=== PATIENT | male | born 1935 | race Caucasian/White ===

== ENCOUNTER → 2023-12-12 09:00 | Outpatient (REF) | payer OTHER, SELFPAY | LOC: HWRAD 09:00 | PROVIDERS: ATTENDING PHYSICIAN Internal Medicine Hematology & Oncology; FAMILY PHYSICIAN Family Medicine | DX: C43.4 Malignant melanoma of scalp and neck (principal) | CPT/HCPCS: 71260; 74177; Q9967 ==

== ENCOUNTER → 2024-03-11 09:25 | Outpatient (REF) | payer OTHER, SELFPAY | LOC: HWRAD 09:25 | PROVIDERS: ATTENDING PHYSICIAN Internal Medicine Hematology & Oncology; FAMILY PHYSICIAN Family Medicine | DX: C43.4 Malignant melanoma of scalp and neck (principal) | CPT/HCPCS: 71260; 74177; Q9967 ==

== ENCOUNTER → 2024-07-10 08:12 | Outpatient (REF) | payer OTHER, SELFPAY | LOC: HWRAD 08:12 | PROVIDERS: ATTENDING PHYSICIAN Internal Medicine Hematology & Oncology; FAMILY PHYSICIAN Family Medicine | DX: C43.4 Malignant melanoma of scalp and neck (principal) | CPT/HCPCS: 71260; 74177; Q9967 ==

== ENCOUNTER 2024-09-01 00:03 | Emergency (ER) | payer OTHER, SELFPAY ==
[2024-09-01 00:09] VITALS: BP 119/72
[2024-09-01 01:06] VITALS: BMI 24.7
[2024-09-01] MEDS: TYLENOL 1000 MG PO (01:08)
[2024-09-01] MEDS: TORADOL 30 MG IV (01:09)
[2024-09-01] MEDS: NSS 1000 IV (01:09)
[2024-09-01 01:18] LABS: % Basophils 0.8 % (0-2); % Eosinophils 4.3 % (0-6); % Immature Granulocytes 0.6 % (0-0.5); % Lymphocytes 26.3 % (20.5-51.1); % Monocytes 11.4 % (1.7-9.3); % Neutrophils 56.6 % (42.2-75.2); Absolute Basophils 0.1 10^3/uL (0-0.2); Absolute Eosinophils 0.3 10^3/uL (0-0.7); Absolute Lymphocytes 1.9 10^3/uL (1.2-3.4); Absolute Monocytes 0.8 10^3/uL (0.1-0.6); Absolute Neutrophils 4.1 10^3/uL (1.4-6.5); Hematocrit 42.4 % (39.0-52.0); Hemoglobin 14.9 g/dL (13.0-18.0); Mean Corp Hgb Conc. 35.1 g/dL (33.0-37.0); Mean Corpuscular Hgb 32.3 pg (27.0-31.0); Mean Platelet Volume 9.6 fL (7.4-10.4); Nucleated Red Blood Cells % 0 % (-); Platelet Count 159 10^3/uL (130-400); Red Blood Cell Count 4.61 10^6/uL (4.70-6.10); Red Cell Dist. Width 13.2 % (11.5-14.5); White Blood Cell Count 7.3 10^3/uL (4.8-10.8)
[2024-09-01 01:41] LABS: ALT (SGPT) 15 U/L (0-50); Albumin 3.8 g/dl (3.5-5.0); Blood Urea Nitrogen 27 mg/dl (9-20); Calcium 8.9 mg/dl (8.4-10.2); Carbon Dioxide 25 mmol/L (22-30); Chloride 101 mmol/L (98-107); Estimated Creatinine Clearance 41 ml/min; Glucose 175 mg/dl (70-99); Sodium 133 mmol/L (135-145); Total Bilirubin 0.9 mg/dl (0.2-1.3); eGFR 52.51
[2024-09-01 01:53] VITALS: BP 141/80
[2024-09-01 01:54] VITALS: BP 141/80
[2024-09-01 02:00] LABS: Urine Albumin Trace (Neg - Trace); Urine Bilirubin Negative (Negative); Urine Character Slightly Cloudy (Clear); Urine Color Yellow; Urine Glucose 3+ (Negative); Urine Ketone Negative (Negative); Urine Leukocyte 2+ (Negative); Urine Nitrite Positive (Negative); Urine Occult Blood 4+ (Negative); Urine Specific Gravity 1.015 (<1.030); Urine Urobilinogen Negative (Neg - 1+)
[2024-09-01 02:01] LABS: AST (SGOT) 23 U/L (17-59); Alkaline Phosphatase 74 U/L (38-126); Potassium 4.5 mmol/L (3.5-5.1)
[2024-09-01 02:21] LABS: Urine Red Blood Cell >100 /HPF (0-2)
[2024-09-01 02:22] LABS: Urine Squamous Cell SEEN /LPF (Few); Urine White Cell >100 /HPF (0-5)
--- NOTE | 2024-09-01 02:37 | ED.GENMED ---
History of Present Illness
General
Chief Complaint: Back Pain
Source: patient
Exam Limitations: none
Time Seen by Provider: 09/01/24 00:46
History of Present Illness
History of Present Illness:
This is a 89 year old male that comes in with c/o left sided back pain. States that he thinks he has a kidney stone. States that when he walks or turns over in bed he has back pain. States that even standing he has pain. States that this started a
few weeks ago but today the pain got much worse. Denies any fever, chills, chest pain, SOB, abd pain, nausea, vomiting, diarrhea, headache, dizziness, urinary burning.
Past History
Past History
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 Renal calculus,
)
ED Past Surgical History: Cardiac (Stent X 1), Cholecystectomy and Other (Left eye surgery, Cataracts, )
Social History
Tobacco: Former smoker
Alcohol: Occasional
Drug: None
Personal:
Living: with family
Family History
Family History: Cancer; Negative Diabetes, Hypertension, Early CAD or Asthma
Review of Systems
Review of Systems
All Other Systems: ROS reviewed and negative except as documented in HPI and ROS
Constitutional: Reports no symptoms; Denies fever or chills
EENT: Reports no symptoms
Respiratory: Reports no symptoms; Denies cough or trouble breathing
Cardiac: Reports no symptoms; Denies chest pain
ABD/GI: Reports no symptoms; Denies abdominal pain, nausea, vomiting or diarrhea
: Reports no symptoms; Denies dysuria, frequency or urgency
Musculoskeletal: Reports back pain (Left sided)
Skin: Reports no symptoms
Neurological: Reports no symptoms; Denies dizzy or headache
Psychiatric: Reports no symptoms
Phy Exam
General Physical Exam
General Presentation: mild distress (With movement)
General age: appears stated age
General Skin: warm and dry
General Habitus: elderly
General Mental: alert
General Hydration: dry mucous membranes
ENT Exam
ENT Exam: TM's normal, pharynx normal and neck supple
Cardiovascular Exam
Cardiovascular Exam: regular rate/rhythm and normal peripheral pulses
Pulmonary Exam
Pulmonary Exam: lungs clear, no respiratory distress, no rales, chest non tender, no crackles, no rhonchi, no wheezing and no cough
Gastrointestinal Exam
Gastrointestinal Exam: normal bowel sounds, non tender, soft, no organomegaly, no pulsatile mass, non distended and no cva tenderness
Musculoskeletal Exam
Musculoskeletal Exam: no edema and other (Negative for any spinal or lateral back pain. Slight Discomfort with left sided straight leg raise. Discomfort with going up on his toes. Negative discomfort turning sided to side or bending forward. )
Skin Exam
Skin Exam: normal color, warm/dry, no rash and no petechia
Psychiatric Exam
Psychiatric Exam: normal mood/affect
Course
Orders/Labs/Results
Orders:
Orders
09/01/24 00:56
0.9% Sodium Chloride 1000 ml [Nss] 1,000 ml IV BOLUS
Acetaminophen [Tylenol] 1,000 mg PO NOW STA
Ketorolac [Toradol] 30 mg IV NOW STA
09/01/24 01:10
Complete Blood Count/With Diff Urgent
Comprehensive Metabolic Panel Urgent
09/01/24 01:51
Urinalysis Reflex To Culture Urgent
Date Specimen was Collected: 09/01/24
Time Specimen was Collected: 01:51
Urine Microscopic Reflex Cult Urgent
Urine Culture Urgent
DENISE Source: U
Specimen Description:
Date Specimen was Collected: 09/01/24
Time Specimen was Collected: 01:51
09/01/24 02:34
CT Abd/pel Without Iv Or Oral Urgent
Comment:
Reason For Exam: Back pain, Positive UTI with blood
09/01/24 02:35
CefTRIAXone [Rocephin] 1,000 mg IV NOW STA
09/01/24 02:36
HYDROmorphone [Dilaudid] 0.25 mg IV NOW STA
Abnormal Lab Results
09/01/24 09/01/24
01:10 01:51
RBC 4.61 L 10^6/uL
(4.70-6.10)
MCH 32.3 H pg
(27.0-31.0)
Absolute Monos (auto) 0.8 H 10^3/uL
(0.1-0.6)
Immature Gran % 0.6 H %
(0-0.5)
Monocytes % 11.4 H %
(1.7-9.3)
Sodium 133 L mmol/L
(135-145)
BUN 27 H mg/dl
(9-20)
Glucose 175 H mg/dl
(70-99)
Ur Occult Blood Reflex 4+ A
(Negative)
Urine Nitrite (Reflex) Positive A
(Negative)
Leukocyte Esterase Rfl 2+ A
(Negative)
Urine RBC >100 A /HPF
(0-2)
Urine WBC (Reflex) >100 A /HPF
(0-5)
Urine Glucose 3+ A
(Negative)
09/01/24 01:10
09/01/24 01:10
Sodium slightly low. Hyperglycemia. Urine positive for infection.
Vital Signs
Initial and Last Documented VS:
Initial Vital Signs
Temp Pulse Resp BP Pulse Ox
97.7 F 70 18 119/72 96
09/01/24 00:09 09/01/24 00:09 09/01/24 00:09 09/01/24 00:09 12/22/24 00:09
Last Documented Vital Signs
Temp Pulse Resp BP Pulse Ox
97.7 F 62 18 145/84 97
09/01/24 00:09 09/01/24 01:54 09/01/24 00:09 09/01/24 02:53 09/01/24 02:54
Head Of Sales Promotion consulted with Physician
Head Of Sales Promotion consulted with physician?: Yes
Name of Physician Consulted: Dr. Haskins
MDM/Problems Addressed
Differential Diagnosis Includes:
Low back pain. UTI. Pyelonephritis. Renal calculus
MDM/Problems Addressed:
This is a 89 year old male that comes in with c/o left sided back pain. States that when he moves or turns on his side he has pain. States that with standing he has pain. States that this started a few weeks ago but today it got bad.
Will check labs and give IV fluids. Will get urine and get CT scan.
back into see patient and daughter. Explained that his CT shows that there is a stone in the left kidney but this looks similar to prior CT. Patient does have a urinary tract infection and will be given IV antibiotic here and a prescription for
home. Patient to follow up with the Urologist. Patient to increase his water intake to 8-8oz glasses daily. Return with fever. or any other concerns.
Chronic conditions affecting care:
Renal calculus,
Chronic conditions affecting care: DM
Acute Exacerbation and/or Progression of Chronic Illness:
NA
*Radiology
Radiology exam reviewed: radiology read reviewed (CT night hawk- Mild left-sided hydronephrosis, similar compared to the prior. nonspecific bilateral perinephric ft stranding. Nonobstructing stone in the left kidney. Multiple areas of scarring in
the left kidney. Bilateral renal cyst. Indeterminate density material within the posterior apsect of), all reviewed NAD by ED Provider (CT cont- of the bladder (301/126). This could represent debris or blood clot, however, if indicated could
evaluate further to exclude an underlying mucosal lesion in this location. Additional findings: Chronic interstitial changes at the lung base. Cardiomegaly with coronary artery disease. ) and other (CT cont- Cholecystectomy. Duodenal diverticulia.
Left inguinal hernia containing part of the sigmoid colon. )
*Pulse Oximetry
Patient hypoxic: no
*EKG
Interpreted by ED Provider?: NA
Rate: EKG- N/A
*Applications Developer Interpretation
Rate: Applications Developer- N/A
*Critical Care Note
Total Time (30-74mins, 75-104mins- exclusive of procedures): Not Applicable
ED Attending Note
-
Portions of this chart may have been created with voice recognition software.� Occasional wrong word or��sound alike� substitutions may have occurred due to the inherent limitations of voice recognition software.
Discharge Plan
Departure
Patient Disposition: Home (Routine Discharge)
Date of Disposition: 09/01/24
Time of Disposition: 03:26
Patient with high blood pressure during this ER visit?: Yes
Condition: Good
Covid-19: Not Applicable
Discharge Problem:
Urinary tract infection
Instructions: BLOOD PRESSURE, Urinary Tract Infection - Men
Prescriptions:
New
cefdinir 300 mg capsule
300 mg PO BID Qty: 20 0RF
No Action
famotidine 20 MG tablet
20 mg PO DAILY Qty: 0 0RF
Xarelto 20 MG tablet
20 mg PO QPM
Trulicity 0.75 MG/0.5 ML pen injector
0.75 mg SQ SA
Jardiance 10 MG tablet
10 mg PO DAILY
tamsulosin 0.4 MG capsule
0.4 mg PO QPM
magnesium oxide 500 MG tablet
500 mg PO DAILY
losartan 25 MG tablet
12.5 mg PO QPM
pravastatin 20 MG tablet
20 mg PO QPM
lutein-zeaxanthin extract 1 CAP capsule
1 cap PO QPM
cholecalciferol (vitamin D3) 2,000 UNITS tablet
2,000 units PO DAILY
B Complex-Vitamin B12 1,000 mg capsule
1,000 mg PO DAILY
Keytruda 25 mg/mL Solution
200 mg IV Q3W
polyethylene glycol 3350 [HealthyLax] 17 gram Powder In Packet
17 g PO DAILY 10 Days Qty: 14 0RF
oxycodone 5 mg Tablet
5 mg PO Q4HPRN PRN (Reason: moderate pain) Qty: 10 0RF
Referrals:
Mook Mcintosh MD [Active] - Call in 1-3 days for appt
Peace Nuñez MD [Family Provider] -
Activity Restrictions/Additional Instructions:
As discussed, your blood work shows that you are dehydrated. Please increase your water intake to 8-8oz glasses daily. You also have a urinary tract infection. You have been given IV antibiotics here and a prescription has been sent to your pharmacy
for the next 10 days. Please Follow up with the Urologist or your family doctor for repeat urine after you have completed your antibiotics. IF YOU HAVE FEVER, INCREASED OR CHANGING PAIN OR YOU HAVE ANY OTHER CONCERNS PLEASE RETURN TO THE EMERGENCY
ROOM.
Interventions
Interventions:
*Risk Screen - Suicide Last Done: 09/01/24 00:09
*General Assessment Last Done: 09/01/24 00:09
*Neglect/Abuse Screening Last Done: 09/01/24 00:53
ED- Fall Risk Assessment Last Done: 09/01/24 01:08
*ED COVID-19 Vaccine History Last Done: 09/01/24 00:09
ED-Musculoskeletal Assessment Last Done: 09/01/24 00:53
Discharge Date and Time
Print Language: INDONESIAN
[2024-09-01 02:53] VITALS: BP 145/84
[2024-09-01] MEDS: ROCEPHIN 1000 MG IV (02:56)
[2024-09-01] MEDS: DILAUDID 0.25 MG IV (02:57)
== END 2024-09-01 03:43 | disposition home or self-care (01) ==
LOC: EMR 00:03
PROVIDERS: Clinical Nurse Specialist Family Health; EMERGENCY PHYSICIAN Emergency Medicine; FAMILY PHYSICIAN Family Medicine
DX: N39.0 Urinary tract infection, site not specified (principal); I48.92 Unspecified atrial flutter; I25.10 Atherosclerotic heart disease of native coronary artery without angina pectoris; I10 Essential (primary) hypertension; E78.00 Pure hypercholesterolemia, unspecified; E11.65 Type 2 diabetes mellitus with hyperglycemia; E11.36 Type 2 diabetes mellitus with diabetic cataract; Z82.49 Family history of ischemic heart disease and other diseases of the circulatory system; Z87.19 Personal history of other diseases of the digestive system; Z87.442 Personal history of urinary calculi; Z87.891 Personal history of nicotine dependence; Z90.49 Acquired absence of other specified parts of digestive tract; Z95.5 Presence of coronary angioplasty implant and graft
CPT/HCPCS: 99284; 96374; 96375; 96361; 74176; 80053; 81003; 81015; 85025; 87086; 87147; 87186; 96360